=== PATIENT | male | born 1995 | race Caucasian/White ===

== ENCOUNTER → 2017-07-09 | Outpatient (CLI) | payer BC, OTHER ==
[~2017-07-09] MED LIST: OXYC-57 PO
== END | disposition home or self-care (01) ==
LOC: C.RDSM 09:29
PROVIDERS: ATTEND Physical Medicine & Rehabilitation Sports Medicine
DX: S63.617A Unspecified sprain of left little finger, initial encounter (principal); X58.XXXA Exposure to other specified factors, initial encounter

== ENCOUNTER → 2017-09-17 | Outpatient (CLI) | payer BC, OTHER | END | disposition home or self-care (01) | LOC: C.RDSM 20:45 | PROVIDERS: ATTEND Physical Medicine & Rehabilitation Sports Medicine | DX: M25.511 Pain in right shoulder (principal) ==

== ENCOUNTER → 2017-09-20 | Outpatient (CLI) | payer BC, OTHER ==
--- NOTE | 2017-09-20 09:43 | DIAGNOSTIC IMAGING REPORT ---
R INJECTION SHOULDER PRE MRI CLINICAL HISTORY: 21 years-old Male presenting with RT SHOULDER SUBLUXATION. COMPARISON: Plain radiographs from 09/17/2017. PROCEDURE: The risks, benefits, and alternatives to the procedure were discussed with the patient. Written informed consent was obtained. The patient was placed supine on the fluoroscopy table, and a right shoulder injection was performed under fluoroscopic guidance. The area was prepped and draped in the usual sterile fashion. The skin and soft tissues anesthetized with local 1% lidocaine. The right shoulder joint was accessed utilizing a 22-gauge needle, and approximately 12 cc of a mixture of gadolinium contrast, Optiray 300, and saline was injected into the joint space under fluoroscopic guidance. There was normal distention of the capsule. The procedure was well tolerated without immediate complication. The patient was then transferred to MRI for MR arthrography. Fluoroscopy dosage (mGy): Not available. Fluoroscopy time: 0.2 minutes. Number of fluoroscopic spot images: 0. IMPRESSION: Successful injection of the right shoulder under fluoroscopic guidance. Electronically signed by: Marquis Chahal M.D. 09/20/2017 9:42 AM Dictated Date/Time: 09/20/2017 9:41 AM
--- NOTE | 2017-09-20 10:20 | DIAGNOSTIC IMAGING REPORT ---
UPPER EXT JOINT WITH CLINICAL HISTORY: 21 years-old Male presenting with R SHOULDER SUBLUXATION. TECHNIQUE: Multisequence, multiplanar MR imaging of the right shoulder was performed after the administration of intra-articular contrast. IV contrast: None. COMPARISON: MR from 04/20/2015. FINDINGS: Localizer images: Unremarkable. Bone marrow: Bony edema noted at the medial aspect of the foot plate of the supraspinatus insertional fibers. No other sites of bony edema. Articular cartilage and labrum: Irregular fluid signal intensity in the inferior glenoid (series 7 image 12). This abnormality involves the medial aspect of the inferior labrum as well as the adjacent cartilage this extends to the anterior inferior labrum (3:00 to 6:00). A tiny labral fragment is interposed between the humeral head and articular cartilage at this site. The anterior inferior labrum remains attached to the glenoid. Biceps and triceps: Biceps labral complex preserved. Long head of the biceps tendon normal and well seated within the intertubercular groove. Short head of the biceps tendon intact. Long head of the triceps tendon intact. Pectoralis: Pectoralis tendon grossly intact though only partially visualized. Rotator cuff: No significant fluid within the subacromial subdeltoid bursa. No evidence of a partial or complete rotator cuff tear. Supraspinatus tendon with increased signal intensity of the insertional fibers likely tendinosis. Infraspinatus, teres minor, and subscapularis tendons intact. Glenohumeral joint: Expected distention of the joint with intra-articular contrast. Acromioclavicular joint: Normal. Muscle: Normal muscle bulk and muscle signal intensity. IMPRESSION: 1. Findings suspicious for a glenolabral articular disruption lesion involving the anterior inferior labrum from 3:00 to 6:00. 2. Supraspinatus tendinosis. No rotator cuff tear. Reactive bony edema adjacent to the greater tuberosity. 3. Postsurgical changes of the pectoralis tendon are not immediately apparent. Resolution of previously noted abnormality. Electronically signed by: Marquis Chahal M.D. 09/20/2017 10:18 AM Dictated Date/Time: 09/20/2017 10:07 AM
== END | disposition home or self-care (01) ==
LOC: C.MRI 08:30
PROVIDERS: ATTEND Physical Medicine & Rehabilitation Sports Medicine
DX: S43.001A Unspecified subluxation of right shoulder joint, initial encounter (principal); X58.XXXA Exposure to other specified factors, initial encounter

== ENCOUNTER → 2017-09-25 | Day surgery (SDC) | payer BC, OTHER ==
[~2017-09-25] MED LIST changes: +EpINEphrine INJ 1MG/ML AMP 1 MG/ML AMP ONE; +LIDOCAINE 4% MPF SOAK 5 ML = 1 DOSE TOP ONE; +LIDOCAINE/EPINEPHRINE 1% 20 ML VIAL ONE
== END | disposition home or self-care (01) ==
LOC: EDSTATUS 10:30 → C.PAT 16:31
PROVIDERS: ATTEND Physical Medicine & Rehabilitation Sports Medicine
DX: M25.311 Other instability, right shoulder (principal); Z53.9 Procedure and treatment not carried out, unspecified reason